=== PATIENT | male | born 1990 | race Caucasian/White ===

== ENCOUNTER 2019-04-03 14:54 | Emergency (ER) | payer BC, OTHER ==
[2019-04-03] MEDS: IPRATROPIUM/ALBUTEROL 3 ML VIAL NEB ONE (15:30)
[2019-04-03 15:51] VITALS: BP 131/80
--- NOTE | 2019-04-03 16:06 | ED.PDOC ---
History of Present Illness - General Chief Complaint: Respiratory Problem Stated Complaint: cough, fever Time Seen by Provider: 04/03/19 15:24 Source: patient Exam Limitations: no limitations - History of Present Illness Initial Comments: the patient is a 28-year-old male presenting to the emergency room secondary to cough, shortness of breath and low-grade fever for the last 24-48 hours. Mild runny nose and mild sore throat. He has been using his nebulizer. He does have a mild eczematous rash to his upper extremities. No hypoxia. No respiratory distress. Timing/Duration: 24 hours Severity: moderate Improving Factors: nothing Worsening Factors: nothing Associated Symptoms: cough, fever/chills, malaise, shortness of breath Allergies/Adverse Reactions: Allergies NO KNOWN ALLERGY Allergy (Unverified 04/17/14 16:02) Home Medications: Ambulatory Orders Prednisone [Prednisone Intensol] 5 mg PO DAILY 04/17/14 Albuterol Inhaler [Ventolin Hfa Inhaler] 108 mcg IN Q4-6H PRN #1 inh 04/21/14 Clindamycin HCl 300 mg PO Q6-8H #21 cap 04/21/14 Azithromycin 500 mg PO DAILY #5 tab 04/03/19 predniSONE [Prednisone] 20 mg PO DAILY #5 tab 04/03/19 Review of Systems - Review of Systems Constitutional: States: chills, fever, malaise EENTM: States: nose congestion, throat pain Respiratory: States: cough, short of breath Cardiology: States: no symptoms reported Gastrointestinal/Abdominal: States: no symptoms reported Genitourinary: States: no symptoms reported Musculoskeletal: States: no symptoms reported Skin: States: no symptoms reported Neurological: States: no symptoms reported Endocrine: States: no symptoms reported Past Medical History (General) - Patient Medical History 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 Hx Congestive Heart Failure: No Hx Pacemaker: No Hx Hypertension: No Hx Diabetes: No Hx MRSA: No Surgical History: other - Vaccination History Hx Influenza Vaccination: No - Social History Hx Tobacco Use: Yes Family Medical History - Family History Mother Hx Family Diabetes: Yes Physical Exam - Physical Exam General Appearance: Alert, No apparent distress, Ill Appearing Eye Exam: bilateral normal Ears, Nose, Throat: hearing grossly normal, nasal congestion, pharyngeal erythema Neck: full range of motion, supple Respiratory: no respiratory distress, no accessory muscle use, rhonchi, wheezing Cardiovascular/Chest: normal peripheral pulses, regular rate, rhythm, no edema Peripheral Pulses: radial,right: 2+, radial,left: 2+ Gastrointestinal/Abdominal: non tender, soft Rectal Exam: deferred Extremity: normal range of motion, normal inspection, no calf tenderness, normal capillary refill Neurologic: [employer] II-XII nml as tested, alert, normal mood/affect, oriented x 3 Skin Exam: other Comments: mild eczematous rash to the forearms Vital Signs 04/03/19 15:15 Temperature 100.4 F H Pulse Rate [ 110 H left brachial] Respiratory 24 Rate Blood Pressure 131/80 [left brachial] O2 Sat by Pulse 94 L Oximetry Progress - Progress Progress: 04/03/19 16:27 the patient is a 28-year-old male presenting with what is most likely a viral respiratory tract infection at this time triggering his asthma. The patient has had a history of recurrent pneumonias and thus will be placed on azithromycin primarily prophylactically at this point. He needs to continue his breathing treatments. He will also be written for 5 days oral prednisone to help with the asthma. ER warnings were given for any worsening. Tested negative for flu here today. emmanuelle herman [id number] - Results/Orders Results/Orders: rapid flu is negative. Departure - Departure Clinical Impression: Viral bronchitis Asthma exacerbation Qualifiers: Asthma severity: moderate Asthma persistence: persistent Qualified Code(s): J45.41 - Moderate persistent asthma with (acute) exacerbation Disposition: Discharge to Home or Self Care Condition: Fair Departure Forms: ED Discharge - Pt. Copy, Patient Portal Self Enrollment Instructions: DI for Asthma -- Adult Diet: regular diet Activity: increase activity as tolerated Referrals: Rosamaria Godinez NP [Primary Care Provider] - 1-2 Weeks Prescriptions: Azithromycin 500 mg PO DAILY #5 tab predniSONE [Prednisone] 20 mg PO DAILY #5 tab Home Medications: Ambulatory Orders Prednisone [Prednisone Intensol] 5 mg PO DAILY 04/17/14 Albuterol Inhaler [Ventolin Hfa Inhaler] 108 mcg IN Q4-6H PRN #1 inh 04/21/14 Clindamycin HCl 300 mg PO Q6-8H #21 cap 04/21/14 Azithromycin 500 mg PO DAILY #5 tab 04/03/19 predniSONE [Prednisone] 20 mg PO DAILY #5 tab 04/03/19 Additional Instructions: the patient is a 28-year-old male presenting with what is most likely a viral respiratory tract infection at this time triggering his asthma. The patient has had a history of recurrent pneumonias and thus will be placed on azithromycin primarily prophylactically at this point. He needs to continue his breathing treatments. He will also be written for 5 days oral prednisone to help with the asthma. ER warnings were given for any worsening. Tested negative for flu here today.
[2019-04-03] MEDS: predniSONE 20 MG TAB PO ONE (16:36)
[2019-04-03] MEDS: AZITHROMYCIN 250 MG TAB PO ONE (16:36)
[2019-04-03] MEDS: IBUPROFEN 200 MG TAB PO ONE (16:53)
[2019-04-03 16:59] VITALS: TEMP 100.7; O2SAT 96
== END 2019-04-03 16:56 | disposition home or self-care (01) ==
LOC: ER 14:54
DX: J20.8 Acute bronchitis due to other specified organisms (principal); J45.41 Moderate persistent asthma with (acute) exacerbation; Z87.891 Personal history of nicotine dependence
CPT/HCPCS: 87502; 94640; J7512; J7620; Q0144